=== PATIENT | female | born 1980 | race African-American/Black ===

== ENCOUNTER 2017-10-02 20:32 | Emergency (ER) | payer MEDICAID ==
[~2017-10-02] VITALS: Ht 152.4 cm; Wt 91.6 kg
[2017-10-02 20:38] VITALS: BP_SYST 184
[2017-10-02] MEDS ORDERED: NACL 0.9% 1,000 ML IV ONE (21:13)
[2017-10-02] MEDS ORDERED: DIPHENHYDRAMINE INJ 50 MG/ML VIAL IVP ONE (21:15)
[2017-10-02 21:47] LABS: BILIRUBIN,URINE NEGATIVE (NEGATIVE); CLARITY/URINE CLEAR (CLEAR); COLOR,URINE YELLOW (YELLOW); GLUCOSE,URINE 3+ (NEGATIVE); KETONES,URINE 1+ (NEGATIVE); LEUKOCYTE ESTERASE ,URINE NEGATIVE (NEGATIVE); NITRITE, URINE NEGATIVE (NEGATIVE); PROTEIN URINE 1+ (NEGATIVE); UROBILINOGEN,URINE 0.2 (0.2-1.0)
[2017-10-02 21:48] LABS: BLOOD, URINE TRACE (NEGATIVE)
[2017-10-02 21:56] LABS: BACTERIA,URINE FEW /HPF (None Seen); RBC,URINE 0-3 /HPF (0-3); WBC,URINE 0-3 /HPF (0-3)
[2017-10-02 21:57] LABS: MUCUS,URINE None Seen /LPF (None Seen)
[2017-10-02 22:01] LABS: TRIPLE PHOSPHATE CRYSTAL,UR 0-10 /HPF (None Seen)
[2017-10-02 22:11] LABS: EOSINOPHILS % (AUTO) 0.1 % (0.0-4.0); HEMATOCRIT 42.4 % (36-48); HEMOGLOBIN 13.5 g/dL (12.0-16.0); LYMPHOCYTES # (AUTO) 1.2 K/uL (1.0-5.5); LYMPHOCYTES % (AUTO) 6.4 % (20.5-51.5); MEAN CORPUSCULAR HEMOGLOBIN 25 pg (27-31); MEAN CORPUSCULAR HGB CONC 32 % (32-36); MEAN CORPUSCULAR VOLUME 77 fL (79.0-98.0); MONOCYTES # (AUTO) 0.9 K/uL (0.0-1.0); NEUTROPHILS # (AUTO) 16.1 K/uL (1.8-7.7); NEUTROPHILS % (AUTO) 88.5 % (40.0-70.0); PLATELET COUNT (AUTO) 241 K/uL (130-430); RED CELL DISTRIBUTION WIDTH 13.5 % (9.0-15.0); WHITE BLOOD COUNT (AUTO) 18.2 K/uL (4.8-10.8)
[2017-10-02 22:13] LABS: CALCIUM 9.7 mg/dL (8.4-11.0); CREATININE 0.76 mg/dL (0.55-1.30); POTASSIUM 3.6 mmol/L (3.5-5.1)
[2017-10-02 22:18] LABS: ALBUMIN 3.5 g/dL (3.4-4.8); TOTAL BILIRUBIN 0.6 mg/dL (0.0-1.0)
[2017-10-02] MEDS ORDERED: INSULIN REGULAR, HUMAN 10 UNITS/0.1 ML INJ SUBCUT ONE (23:30)
[2017-10-02] MEDS ORDERED: PENICILLIN G BENZATHINE 1.2 MMU/2 ML SYR IM ONE (23:30)
[2017-10-02] MEDS ORDERED: LISINOPRIL 10 MG TABLET (PRINIVIL) PO ONE (23:45)
[2017-10-03] MEDS ORDERED: ACETAMINOPHEN 325 MG TABLET PO ONE
[2017-10-03 00:55] VITALS: BP_SYST 201
== END 2017-10-03 00:55 | disposition home or self-care (01) ==
LOC: SED 20:32
DX: J02.0 Streptococcal pharyngitis (principal); B95.0 Streptococcus, group A, as the cause of diseases classified elsewhere; E11.9 Type 2 diabetes mellitus without complications; I10 Essential (primary) hypertension
CPT/HCPCS: 36415; 80053; 81000; 85025; 86403; 96361; 96372; 96374; 99285; J0561; J1200; J7030; J1815

== ENCOUNTER 2018-01-05 10:02 | Inpatient (IN) | payer MEDICAID ==
[~2018-01-05] VITALS: Ht 152.4 cm; Wt 88.0 kg
[2018-01-05 10:02] VITALS: BP_SYST 100
[2018-01-05] MEDS ORDERED: NACL 0.9% 1,000 ML IV ONE ×5 (10:47→16:30)
[2018-01-05 11:24] LABS: HEMOGLOBIN 11.9 g/dL (12.0-16.0); MEAN CORPUSCULAR HEMOGLOBIN 25 pg (27-31)
[2018-01-05 11:31] LABS: HCG,QUAL RESULT NEGATIVE (NEGATIVE)
[2018-01-05 11:33] LABS: ALBUMIN 2.5 g/dL (3.4-4.8); CALCIUM 9.2 mg/dL (8.4-11.0); CREATININE 2.32 mg/dL (0.55-1.30); HEMATOCRIT 36.4 % (36-48); MEAN CORPUSCULAR HGB CONC 33 % (32-36); MEAN CORPUSCULAR VOLUME 77 fL (79.0-98.0); PLATELET COUNT (AUTO) 173 K/uL (130-430); POTASSIUM 3.7 mmol/L (3.5-5.1); RED BLOOD CELL COUNT(AUTO) 4.74 MIL/uL (4.2-6.2); RED CELL DISTRIBUTION WIDTH 14.3 % (9.0-15.0); WHITE BLOOD COUNT (AUTO) 18.9 K/uL (4.8-10.8)
[2018-01-05 11:41] LABS: BILIRUBIN,URINE NEGATIVE (NEGATIVE); BLOOD, URINE 2+ (NEGATIVE); CLARITY/URINE CLOUDY (CLEAR); COLOR,URINE YELLOW (YELLOW); GLUCOSE,URINE 3+ (NEGATIVE); KETONES,URINE NEGATIVE (NEGATIVE); LEUKOCYTE ESTERASE ,URINE 2+ (NEGATIVE); NITRITE, URINE NEGATIVE (NEGATIVE); PH,URINE 5.5 (5.0-8.0); PROTEIN URINE 2+ (NEGATIVE); UROBILINOGEN,URINE 0.2 (0.2-1.0)
[2018-01-05 11:57] LABS: RBC,URINE 20-50 /HPF (0-3)
[2018-01-05 11:58] LABS: BACTERIA,URINE MODERATE /HPF (None Seen); WBC,URINE >100 /HPF (0-3); YEAST,URINE None Seen /HPF (None Seen)
[2018-01-05] MEDS ORDERED: ONDANSETRON HCL 4 MG/2 ML VIAL IVP ONE (12:00)
[2018-01-05] MEDS ORDERED: cefTRIAXone 1 GM IVPB PREMIX 50 ML IV ONE (12:00)
[2018-01-05] MEDS ORDERED: MORPHINE 4 MG/ML INJ. SYRINGE IVP ONE (12:00)
[2018-01-05] MEDS ORDERED: INSULIN REGULAR, HUMAN 10 UNITS/0.1 ML INJ IVP ONE (12:00)
[2018-01-05 12:29] LABS: ATYPICAL LYMPHOCYTES % 0 % (0-0); BAND % (MANUAL) 11 % (0-6); BASOPHILS % (MANUAL) 0 % (0-2); EOSINOPHILS % (MANUAL) 0 % (0-7); LYMPHOCYTES % (MANUAL) 1 % (20-46); MONOCYTES % (MANUAL) 4 % (0-11)
[2018-01-05] MEDS ORDERED: GLUXR500 PO (16:03)
[2018-01-05] MEDS ORDERED: LOSA100T11 PO (16:03)
[2018-01-05 16:22] VITALS: BP_SYST 103
[2018-01-05] MEDS ORDERED: MORPHINE 2 MG/ML INJ. SYRINGE IVP PRN (16:30)
[2018-01-05] MEDS ORDERED: DEXTROSE 50% JECT 50 ML DISP.SYRIN IVP PRN (16:30)
[2018-01-05] MEDS ORDERED: PIPERACILLIN/TAZO 3.375/DEX-IS 50 ML IV SCH (16:30)
[2018-01-05] MEDS ORDERED: MORPHINE 4 MG/ML INJ. SYRINGE IVP PRN (16:30)
[2018-01-05] MEDS: NACL 0.9% 1,000 ML IV SCH (17:47)
[2018-01-05] MEDS: INSULIN REGULAR, HUMAN 100 UNITS/ML, 10 ML VIAL (novoLIN R) SUBCUT PRN (17:48)
[2018-01-05] MEDS: PIPERACILLIN/TAZO 3.375/DEX-IS 50 ML IV SCH ×2 (17:57→23:26)
[2018-01-05] MEDS: ONDANSETRON HCL 4 MG/2 ML VIAL IVP PRN (18:22)
[2018-01-05 20:00] VITALS: BP_SYST 110
[2018-01-05] MEDS: HYDROmorphone 2 MG/ML VIAL IVP PRN (20:23)
[2018-01-05] MEDS ORDERED: METOCLOPRAMIDE HCL 10 MG/2 ML VIAL IVP PRN (21:15)
[2018-01-05 22:17] LABS: CALCIUM 8.4 mg/dL (8.4-11.0); CREATININE 2.55 mg/dL (0.55-1.30); POTASSIUM 3.7 mmol/L (3.5-5.1)
[2018-01-06] VITALS: BP_SYST 105
[2018-01-06] MEDS: INSULIN REGULAR, HUMAN 100 UNITS/ML, 10 ML VIAL (novoLIN R) SUBCUT PRN ×4 (00:05→17:37)
[2018-01-06] MEDS: HYDROmorphone 2 MG/ML VIAL IVP PRN ×4 (02:19→20:14)
[2018-01-06] MEDS: NACL 0.9% 1,000 ML IV SCH ×2 (05:28→21:12)
[2018-01-06] MEDS: PIPERACILLIN/TAZO 3.375/DEX-IS 50 ML IV SCH (05:28)
[2018-01-06] MEDS ORDERED: LEVOFLOXACIN 500 MG/D5W 100 ML IV ONE (07:00)
[2018-01-06 08:14] VITALS: BP_SYST 138
[2018-01-06 08:39] LABS: BASOPHILS % (AUTO) 0.1 % (0.0-2.0)
[2018-01-06 08:44] LABS: EOSINOPHILS # (AUTO) 0.5 K/uL (0.0-0.4); EOSINOPHILS % (AUTO) 3.1 % (0.0-4.0); HEMATOCRIT 33.9 % (36-48); HEMOGLOBIN 10.7 g/dL (12.0-16.0); LYMPHOCYTES # (AUTO) 0.4 K/uL (1.0-5.5); LYMPHOCYTES % (AUTO) 2.7 % (20.5-51.5); MEAN CORPUSCULAR HEMOGLOBIN 25 pg (27-31); MEAN CORPUSCULAR HGB CONC 32 % (32-36); MEAN CORPUSCULAR VOLUME 78 fL (79.0-98.0); MONOCYTES # (AUTO) 0.9 K/uL (0.0-1.0); MONOCYTES % (AUTO) 5.5 % (1.7-9.3); NEUTROPHILS # (AUTO) 14.6 K/uL (1.8-7.7); NEUTROPHILS % (AUTO) 88.6 % (40.0-70.0); PLATELET COUNT (AUTO) 155 K/uL (130-430); RED BLOOD CELL COUNT(AUTO) 4.33 MIL/uL (4.2-6.2); RED CELL DISTRIBUTION WIDTH 14.1 % (9.0-15.0); WHITE BLOOD COUNT (AUTO) 16.4 K/uL (4.8-10.8)
[2018-01-06] MEDS ORDERED: HYDROmorphone 2 MG/ML VIAL IVP ONE (09:15)
[2018-01-06 09:23] LABS: CREATININE 2.4 mg/dL (0.55-1.30); POTASSIUM 3.1 mmol/L (3.5-5.1)
[2018-01-06 09:28] LABS: ALBUMIN 2.3 g/dL (3.4-4.8); TOTAL BILIRUBIN 0.8 mg/dL (0.0-1.0)
[2018-01-06] MEDS ORDERED: PIPERACILLIN/TAZO 2.25G/DEX-IS 50 ML IV SCH (12:00)
[2018-01-06 12:47] VITALS: BP_SYST 110
[2018-01-06] MEDS: ONDANSETRON HCL 4 MG/2 ML VIAL IVP PRN ×2 (12:54→20:22)
[2018-01-06] MEDS ORDERED: POTASSIUM CHLORIDE 20 MEQ TAB.PRT.SR PO ONE (14:45)
[2018-01-06] MEDS ORDERED: GENTAMICIN 120 mg/100 mL NS 100 ML IV ONE (15:00)
[2018-01-06 16:52] VITALS: BP_SYST 102
[2018-01-06] MEDS ORDERED: HYDROCORTISONE ACETATE 1 SUPP (ANUSOL HC) RC ONE (17:15)
[2018-01-06 18:19] LABS: BARBITURATE, URINE NEGATIVE (NEG <=200); BENZODIAZEPINE, URINE NEGATIVE (NEG <=150); CANNABINOID, URINE NEGATIVE (NEG <=50); COCAINE, URINE NEGATIVE (NEG <=150); METHAMPHETAMINES SCREEN,URINE NEGATIVE (NEG <=500); OPIATE, URINE POSITIVE (NEG <=100); PHENCYCLIDINE SCREEN,URINE NEGATIVE (NEG <=25); UR TRICYCLIC ANTIDEPRESSANTS NEGATIVE (NEG <=300); URINE AMPHETAMINE NEGATIVE (NEG <=500); URINE METHADONE NEGATIVE (NEG <=200); URINE OXYCODONE SCREEN NEGATIVE (NEG <=100); URINE PROPOXYPHENE SCREEN NEGATIVE (NEG <=300)
[2018-01-06 20:00] VITALS: BP_SYST 108
[2018-01-06] MEDS: HYDROCORTISONE ACETATE 1 SUPP (ANUSOL HC) RC SCH (20:12)
[2018-01-07] VITALS (7 sets, daily range): BP systolic 124–180
[2018-01-07] MEDS: INSULIN REGULAR, HUMAN 100 UNITS/ML, 10 ML VIAL (novoLIN R) SUBCUT PRN ×5 (01:35→23:44)
[2018-01-07] MEDS: HYDROmorphone 2 MG/ML VIAL IVP PRN ×6 (01:41→21:00)
[2018-01-07] MEDS: NACL 0.9% 1,000 ML IV SCH ×3 (04:58→19:00)
[2018-01-07 06:20] LABS: BASOPHILS % (AUTO) 0.1 % (0.0-2.0); EOSINOPHILS # (AUTO) 0.2 K/uL (0.0-0.4); EOSINOPHILS % (AUTO) 1.6 % (0.0-4.0); HEMATOCRIT 29.8 % (36-48); HEMOGLOBIN 9.5 g/dL (12.0-16.0); LYMPHOCYTES # (AUTO) 0.3 K/uL (1.0-5.5); LYMPHOCYTES % (AUTO) 2.5 % (20.5-51.5); MEAN CORPUSCULAR HEMOGLOBIN 25 pg (27-31); MEAN CORPUSCULAR HGB CONC 32 % (32-36); MEAN CORPUSCULAR VOLUME 77 fL (79.0-98.0); MONOCYTES # (AUTO) 0.7 K/uL (0.0-1.0); MONOCYTES % (AUTO) 5.1 % (1.7-9.3); NEUTROPHILS # (AUTO) 11.6 K/uL (1.8-7.7); NEUTROPHILS % (AUTO) 90.7 % (40.0-70.0); PLATELET COUNT (AUTO) 162 K/uL (130-430); RED BLOOD CELL COUNT(AUTO) 3.86 MIL/uL (4.2-6.2); RED CELL DISTRIBUTION WIDTH 14.2 % (9.0-15.0); WHITE BLOOD COUNT (AUTO) 12.8 K/uL (4.8-10.8)
[2018-01-07 06:58] LABS: ALBUMIN 1.8 g/dL (3.4-4.8); CALCIUM 8.5 mg/dL (8.4-11.0); CREATININE 2.13 mg/dL (0.55-1.30); POTASSIUM 3.2 mmol/L (3.5-5.1); TOTAL BILIRUBIN 0.5 mg/dL (0.0-1.0)
[2018-01-07] MEDS: LEVOFLOXACIN 250 MG/D5W 50 ML IV SCH (09:31)
[2018-01-07] MEDS: HYDROCORTISONE ACETATE 1 SUPP (ANUSOL HC) RC SCH ×2 (09:40→20:59)
[2018-01-07] MEDS ORDERED: LABETALOL 100 MG/ 20ML VIAL IVP PRN ×2 (20:15→20:45)
[2018-01-07] MEDS: amLODIPine BESYLATE 5 MG TABLET PO SCH (20:59)
[2018-01-08 00:38] VITALS: BP_SYST 155
[2018-01-08] MEDS: HYDROmorphone 2 MG/ML VIAL IVP PRN ×6 (01:02→22:46)
[2018-01-08] MEDS: NACL 0.9% 1,000 ML IV SCH ×2 (04:30→14:34)
[2018-01-08] MEDS: cloNIDine HCL 0.1 MG TABLET PO PRN ×2 (04:56→11:02)
[2018-01-08 05:00] VITALS: BP_SYST 158
[2018-01-08] MEDS: INSULIN REGULAR, HUMAN 100 UNITS/ML, 10 ML VIAL (novoLIN R) SUBCUT PRN ×4 (05:04→23:10)
[2018-01-08 06:09] LABS: BASOPHILS % (AUTO) 0.3 % (0.0-2.0); EOSINOPHILS # (AUTO) 0.1 K/uL (0.0-0.4); EOSINOPHILS % (AUTO) 0.5 % (0.0-4.0); HEMOGLOBIN 10.3 g/dL (12.0-16.0); LYMPHOCYTES # (AUTO) 0.8 K/uL (1.0-5.5); LYMPHOCYTES % (AUTO) 7.4 % (20.5-51.5); MEAN CORPUSCULAR HEMOGLOBIN 25 pg (27-31); MEAN CORPUSCULAR HGB CONC 33 % (32-36); MEAN CORPUSCULAR VOLUME 76 fL (79.0-98.0); MONOCYTES # (AUTO) 1.1 K/uL (0.0-1.0); MONOCYTES % (AUTO) 10.4 % (1.7-9.3); NEUTROPHILS # (AUTO) 8.9 K/uL (1.8-7.7); PLATELET COUNT (AUTO) 184 K/uL (130-430); RED BLOOD CELL COUNT(AUTO) 4.06 MIL/uL (4.2-6.2); RED CELL DISTRIBUTION WIDTH 14.3 % (9.0-15.0); WHITE BLOOD COUNT (AUTO) 10.9 K/uL (4.8-10.8)
[2018-01-08 06:37] LABS: ALBUMIN 1.8 g/dL (3.4-4.8); CALCIUM 8.9 mg/dL (8.4-11.0); CREATININE 1.61 mg/dL (0.55-1.30); TOTAL BILIRUBIN 0.7 mg/dL (0.0-1.0)
[2018-01-08 08:00] VITALS: BP_SYST 167
[2018-01-08] MEDS: LEVOFLOXACIN 250 MG/D5W 50 ML IV SCH (08:03)
[2018-01-08] MEDS: amLODIPine BESYLATE 5 MG TABLET PO SCH ×2 (08:03→20:18)
[2018-01-08] MEDS: HYDROCORTISONE ACETATE 1 SUPP (ANUSOL HC) RC SCH ×2 (08:03→20:17)
[2018-01-08] MEDS ORDERED: NA PHOS,M-B/NA PHOS,DI-BA 118 ML (FLEET ENEMA) RC ONE (08:45)
[2018-01-08] MEDS ORDERED: IBUPROFEN 400 MG TABLET PO ONE (08:45)
[2018-01-08 11:26] LABS: NEUTROPHILS % (AUTO) 81.4 % (40.0-70.0)
[2018-01-08 13:27] VITALS: BP_SYST 143
[2018-01-08] MEDS ORDERED: DOCUSATE SODIUM 250 MG CAPSULE PO ONE (14:45)
[2018-01-08] MEDS ORDERED: POTASSIUM CHLORIDE 20 MEQ TAB.PRT.SR PO ONE (14:45)
[2018-01-08] MEDS: ONDANSETRON HCL 4 MG/2 ML VIAL IVP PRN (15:59)
[2018-01-08 16:16] VITALS: BP_SYST 147
[2018-01-08] MEDS ORDERED: DIPHENHYDRAMINE INJ 50 MG/ML VIAL IVP PRN (18:30)
[2018-01-08 20:00] VITALS: BP_SYST 151
[2018-01-08] MEDS: DOCUSATE SODIUM 250 MG CAPSULE PO SCH (20:18)
[2018-01-08] MEDS: POTASSIUM CHLORIDE 20 MEQ TAB.PRT.SR PO SCH (20:19)
[2018-01-09 00:30] VITALS: BP_SYST 150
[2018-01-09] MEDS: NACL 0.9% 1,000 ML IV SCH ×3 (01:06→22:58)
[2018-01-09] MEDS: HYDROmorphone 2 MG/ML VIAL IVP PRN ×6 (02:42→22:57)
[2018-01-09] MEDS: INSULIN REGULAR, HUMAN 100 UNITS/ML, 10 ML VIAL (novoLIN R) SUBCUT PRN ×4 (06:13→23:31)
[2018-01-09 06:54] LABS: BASOPHILS % (AUTO) 0.1 % (0.0-2.0); EOSINOPHILS # (AUTO) 0.1 K/uL (0.0-0.4); EOSINOPHILS % (AUTO) 0.6 % (0.0-4.0); HEMATOCRIT 32.8 % (36-48); HEMOGLOBIN 10.7 g/dL (12.0-16.0); LYMPHOCYTES # (AUTO) 0.7 K/uL (1.0-5.5); LYMPHOCYTES % (AUTO) 6.2 % (20.5-51.5); MEAN CORPUSCULAR HEMOGLOBIN 25 pg (27-31); MEAN CORPUSCULAR HGB CONC 33 % (32-36); MEAN CORPUSCULAR VOLUME 77 fL (79.0-98.0); MONOCYTES # (AUTO) 1.4 K/uL (0.0-1.0); MONOCYTES % (AUTO) 12.2 % (1.7-9.3); NEUTROPHILS % (AUTO) 80.9 % (40.0-70.0); PLATELET COUNT (AUTO) 195 K/uL (130-430); RED BLOOD CELL COUNT(AUTO) 4.28 MIL/uL (4.2-6.2); WHITE BLOOD COUNT (AUTO) 11.2 K/uL (4.8-10.8)
[2018-01-09 07:02] LABS: ALBUMIN 1.7 g/dL (3.4-4.8); CALCIUM 8.7 mg/dL (8.4-11.0); CREATININE 1.2 mg/dL (0.55-1.30); TOTAL BILIRUBIN 0.7 mg/dL (0.0-1.0)
[2018-01-09 07:07] LABS: POTASSIUM 2.5 mmol/L (3.5-5.1)
[2018-01-09 08:00] VITALS: BP_SYST 161
[2018-01-09] MEDS ORDERED: POTASSIUM CHLORIDE 20 MEQ TAB.PRT.SR PO ONE ×2 (08:30→14:15)
[2018-01-09] MEDS: HYDROCORTISONE ACETATE 1 SUPP (ANUSOL HC) RC SCH ×2 (08:48→21:54)
[2018-01-09] MEDS: POTASSIUM CHLORIDE 20 MEQ TAB.PRT.SR PO SCH ×2 (08:48→21:55)
[2018-01-09] MEDS: DOCUSATE SODIUM 250 MG CAPSULE PO SCH ×2 (08:49→21:55)
[2018-01-09] MEDS: amLODIPine BESYLATE 5 MG TABLET PO SCH ×2 (08:49→21:56)
[2018-01-09] MEDS: LEVOFLOXACIN 250 MG/D5W 50 ML IV SCH (08:50)
[2018-01-09 12:00] VITALS: BP_SYST 152
[2018-01-09] MEDS ORDERED: MAGNESIUM SULFATE 50 ML IV ONE (12:15)
[2018-01-09 16:00] VITALS: BP_SYST 131
[2018-01-09 19:30] VITALS: BP_SYST 140
[2018-01-10] VITALS (7 sets, daily range): BP systolic 98–175
[2018-01-10] MEDS: cloNIDine HCL 0.1 MG TABLET PO PRN (00:38)
[2018-01-10] MEDS: HYDROmorphone 2 MG/ML VIAL IVP PRN ×2 (03:58→08:11)
[2018-01-10] MEDS: INSULIN REGULAR, HUMAN 100 UNITS/ML, 10 ML VIAL (novoLIN R) SUBCUT PRN ×3 (06:31→17:26)
[2018-01-10 06:35] LABS: BASOPHILS % (AUTO) 0.1 % (0.0-2.0); EOSINOPHILS # (AUTO) 0.1 K/uL (0.0-0.4); EOSINOPHILS % (AUTO) 0.7 % (0.0-4.0); HEMATOCRIT 31.7 % (36-48); HEMOGLOBIN 10.4 g/dL (12.0-16.0); LYMPHOCYTES # (AUTO) 0.9 K/uL (1.0-5.5); LYMPHOCYTES % (AUTO) 7.7 % (20.5-51.5); MEAN CORPUSCULAR HEMOGLOBIN 25 pg (27-31); MEAN CORPUSCULAR HGB CONC 33 % (32-36); MEAN CORPUSCULAR VOLUME 77 fL (79.0-98.0); MONOCYTES # (AUTO) 1.3 K/uL (0.0-1.0); MONOCYTES % (AUTO) 10.9 % (1.7-9.3); NEUTROPHILS # (AUTO) 9.8 K/uL (1.8-7.7); NEUTROPHILS % (AUTO) 80.6 % (40.0-70.0); PLATELET COUNT (AUTO) 207 K/uL (130-430); RED BLOOD CELL COUNT(AUTO) 4.14 MIL/uL (4.2-6.2); WHITE BLOOD COUNT (AUTO) 12.1 K/uL (4.8-10.8)
[2018-01-10 06:56] LABS: POTASSIUM 3.5 mmol/L (3.5-5.1)
[2018-01-10 06:57] LABS: ALBUMIN 1.8 g/dL (3.4-4.8); CREATININE 1.19 mg/dL (0.55-1.30); TOTAL BILIRUBIN 0.6 mg/dL (0.0-1.0)
[2018-01-10] MEDS: POTASSIUM CHLORIDE 20 MEQ TAB.PRT.SR PO SCH ×2 (08:10→21:17)
[2018-01-10] MEDS: DOCUSATE SODIUM 250 MG CAPSULE PO SCH ×2 (08:10→21:16)
[2018-01-10] MEDS: amLODIPine BESYLATE 5 MG TABLET PO SCH ×2 (08:12→21:20)
[2018-01-10] MEDS: LEVOFLOXACIN 250 MG/D5W 50 ML IV SCH (08:12)
[2018-01-10] MEDS: HYDROCORTISONE ACETATE 1 SUPP (ANUSOL HC) RC SCH ×3 (09:00→21:20)
[2018-01-10] MEDS: ONDANSETRON HCL 4 MG/2 ML VIAL IVP PRN (10:19)
[2018-01-10] MEDS: NACL 0.9% 1,000 ML IV SCH (10:31)
[2018-01-10] MEDS: HYDROmorphone 1 MG INJ. 1 MG/ML AMPUL IVP PRN ×3 (12:23→21:16)
[2018-01-11] VITALS: BP_SYST 152
[2018-01-11] MEDS: INSULIN REGULAR, HUMAN 100 UNITS/ML, 10 ML VIAL (novoLIN R) SUBCUT PRN ×3 (00:55→11:29)
[2018-01-11] MEDS: HYDROmorphone 1 MG INJ. 1 MG/ML AMPUL IVP PRN ×2 (01:14→04:13)
[2018-01-11] MEDS: NACL 0.9% 1,000 ML IV SCH ×2 (04:20→12:26)
[2018-01-11 08:00] VITALS: BP_SYST 123
[2018-01-11] MEDS ORDERED: HYDROcodone/ACETAMIN 5-325 MG TAB (NORCO/ VICODIN) PO PRN (08:45)
[2018-01-11] MEDS ORDERED: ACETAMINOPHEN 325 MG TABLET PO PRN (08:45)
[2018-01-11] MEDS: amLODIPine BESYLATE 5 MG TABLET PO SCH (08:58)
[2018-01-11] MEDS: POTASSIUM CHLORIDE 20 MEQ TAB.PRT.SR PO SCH (08:58)
[2018-01-11] MEDS: HYDROCORTISONE ACETATE 1 SUPP (ANUSOL HC) RC SCH (08:59)
[2018-01-11] MEDS: LEVOFLOXACIN 250 MG/D5W 50 ML IV SCH (08:59)
[2018-01-11] MEDS: DOCUSATE SODIUM 250 MG CAPSULE PO SCH (09:02)
[2018-01-11 09:18] LABS: PLATELET COUNT (AUTO) 280 K/uL (130-430); RED CELL DISTRIBUTION WIDTH 14.1 % (9.0-15.0)
[2018-01-11 09:25] LABS: ALBUMIN 2.2 g/dL (3.4-4.8); CALCIUM 9.2 mg/dL (8.4-11.0); CREATININE 1.05 mg/dL (0.55-1.30); POTASSIUM 3.3 mmol/L (3.5-5.1); TOTAL BILIRUBIN 0.5 mg/dL (0.0-1.0)
[2018-01-11 09:30] LABS: HEMATOCRIT 35.1 % (36-48); HEMOGLOBIN 11.3 g/dL (12.0-16.0); MEAN CORPUSCULAR HEMOGLOBIN 24 pg (27-31); MEAN CORPUSCULAR HGB CONC 32 % (32-36); MEAN CORPUSCULAR VOLUME 76 fL (79.0-98.0); RED BLOOD CELL COUNT(AUTO) 4.61 MIL/uL (4.2-6.2); WHITE BLOOD COUNT (AUTO) 12.9 K/uL (4.8-10.8)
[2018-01-11 10:44] LABS: BAND % (MANUAL) 6 % (0-6); LYMPHOCYTES % (MANUAL) 9 % (20-46); MONOCYTES % (MANUAL) 7 % (0-11)
[2018-01-11 10:45] LABS: BASOPHILS % (MANUAL) 0 % (0-2); EOSINOPHILS % (MANUAL) 2 % (0-7)
[2018-01-11] MEDS: ONDANSETRON HCL 4 MG/2 ML VIAL IVP PRN (11:26)
[2018-01-11 12:37] VITALS: BP_SYST 153
[2018-01-11] MEDS ORDERED: POTASSIUM CHLORIDE 20 MEQ TAB.PRT.SR PO ONE (12:45)
[2018-01-11] MEDS ORDERED: metroNIDAZOLE 250 mg/NS 50 ML IV SCH (14:00)
[2018-01-11 16:17] VITALS: BP_SYST 141
[2018-01-11] MEDS ORDERED: CIPR-211 PO (16:35)
[2018-01-11] MEDS ORDERED: METR500T PO (16:36)
[2018-01-11 16:46] VITALS: BP_SYST 141
[2018-01-11] MEDS ORDERED: HYDR-1189 PO (16:46)
== END 2018-01-11 17:15 | disposition home or self-care (01) | DRG 720 ==
LOC: SED 10:02 → SMU 15:48 → STU 01-07 21:00
PROVIDERS: ADMIT Internal Medicine Hospice and Palliative Medicine; ATTEND Internal Medicine Hospice and Palliative Medicine
PROC: 0UPD7HZ Removal of Contraceptive Device from Uterus and Cervix, Via Natural or Artificial Opening (ICD-10-PCS; principal; 2018-01-11)
DX: A41.51 Sepsis due to Escherichia coli [E. coli] (principal); N17.0 Acute kidney failure with tubular necrosis; E87.0 Hyperosmolality and hypernatremia; N10 Acute pyelonephritis; E11.9 Type 2 diabetes mellitus without complications; B96.20 Unspecified Escherichia coli [E. coli] as the cause of diseases classified elsewhere; E44.0 Moderate protein-calorie malnutrition; N39.0 Urinary tract infection, site not specified; I10 Essential (primary) hypertension; B96.89 Other specified bacterial agents as the cause of diseases classified elsewhere; E88.09 Other disorders of plasma-protein metabolism, not elsewhere classified; K82.4 Cholesterolosis of gallbladder; E66.01 Morbid (severe) obesity due to excess calories; E87.6 Hypokalemia; E11.21 Type 2 diabetes mellitus with diabetic nephropathy; Z68.37 Body mass index [BMI] 37.0-37.9, adult; Z30.430 Encounter for insertion of intrauterine contraceptive device; Z87.442 Personal history of urinary calculi; Z91.19 Patient's noncompliance with other medical treatment and regimen
CPT/HCPCS: 36415; 76700-TC; 76830-TC; 76857; 78226; 80048; 80053; 80307; 81000-TC; 82962; 83605; 83690-TC; 83735-TC; 84703; 85007; 85025; 85027; 87040-TC; 87086; 87186-TC; 96361; 96365; 96375; 99291; A9537; C1751; J0696; J1170; J1200; J1580; J1815; J1956; J2270; J2405; J2543; J2765; J3475; J3490; J7030

== ENCOUNTER 2018-09-20 05:58 | Emergency (ER) | payer MEDICAID ==
[~2018-09-20] VITALS: Ht 152.4 cm; Wt 89.8 kg
[~2018-09-20 05:58] MED LIST: CIPR-211 PO; GLUXR500 PO; HYDR-1189 PO; LOSA100T3 PO; METR500T PO
[2018-09-20 06:15] VITALS: BP_SYST 151
[2018-09-20 06:40] VITALS: BP_SYST 151
== END 2018-09-20 06:40 | disposition home or self-care (01) ==
LOC: SED 05:58
DX: J20.9 Acute bronchitis, unspecified (principal); E11.9 Type 2 diabetes mellitus without complications; I10 Essential (primary) hypertension; Z79.899 Other long term (current) drug therapy
CPT/HCPCS: 99283

== ENCOUNTER 2019-01-18 13:57 | Emergency (ER) | payer MEDICAID ==
[~2019-01-18] VITALS: Ht 152.4 cm; Wt 86.2 kg
[2019-01-18 14:04] VITALS: BP_SYST 200
[2019-01-18 15:11] LABS: CALCIUM 9.5 mg/dL (8.4-11.0); CREATININE 1.02 mg/dL (0.55-1.30); POTASSIUM 3.7 mmol/L (3.5-5.1)
[2019-01-18 15:14] LABS: ALBUMIN 3.1 g/dL (3.4-4.8); TOTAL BILIRUBIN 0.5 mg/dL (0.0-1.0)
[2019-01-18 15:19] LABS: BASOPHILS # (AUTO) 0.1 K/uL (0.0-0.2); BASOPHILS % (AUTO) 0.7 % (0.0-2.0); EOSINOPHILS # (AUTO) 0.2 K/uL (0.0-0.4); EOSINOPHILS % (AUTO) 2.5 % (0.0-4.0); HEMATOCRIT 41.2 % (36-48); LYMPHOCYTES # (AUTO) 1.6 K/uL (1.0-5.5); LYMPHOCYTES % (AUTO) 21.4 % (20.5-51.5); MEAN CORPUSCULAR HEMOGLOBIN 24 pg (27-31); MEAN CORPUSCULAR HGB CONC 32 % (32-36); MEAN CORPUSCULAR VOLUME 77 fL (79.0-98.0); MONOCYTES # (AUTO) 0.4 K/uL (0.0-1.0); MONOCYTES % (AUTO) 5.3 % (1.7-9.3); NEUTROPHILS # (AUTO) 5.2 K/uL (1.8-7.7); NEUTROPHILS % (AUTO) 70.1 % (40.0-70.0); PLATELET COUNT (AUTO) 208 K/uL (130-430); RED BLOOD CELL COUNT(AUTO) 5.34 MIL/uL (4.2-6.2); RED CELL DISTRIBUTION WIDTH 14.7 % (9.0-15.0); WHITE BLOOD COUNT (AUTO) 7.4 K/uL (4.8-10.8)
[2019-01-18] MEDS ORDERED: HYDROcodone/ACETAMIN 5-325 MG TAB (NORCO/ VICODIN) PO ONE (15:45)
[2019-01-18 16:45] VITALS: BP_SYST 175
== END 2019-01-18 16:45 | disposition home or self-care (01) ==
LOC: SED 13:57
DX: I16.0 Hypertensive urgency (principal); I10 Essential (primary) hypertension; R51 Headache; E11.9 Type 2 diabetes mellitus without complications; Z79.899 Other long term (current) drug therapy
CPT/HCPCS: 36415; 70450-TC; 80053; 81025; 85025; 93005; 99284

== ENCOUNTER 2019-01-19 10:55 | Emergency (ER) | payer MEDICAID ==
[~2019-01-19] VITALS: Ht 152.4 cm; Wt 88.5 kg
[2019-01-19 11:07] VITALS: BP_SYST 174
--- NOTE | 2019-01-19 11:24 | NUR ---
Patient to ER bed 3 to gown for evaluation. Side rails up. Report given to Kira LÓPEZ.
--- NOTE | 2019-01-19 11:25 | NUR ---
Pt AAOx4 ambulated into ED c/o 04/06 headache, nausea, vomiting, and elevated BP systolic >200 x "past few days." Pt has been seen in ED x 3 days ago with similar symptoms. Pt was sent home with pain and anti-nausea medication with no relief. Pt denies taking BP meds due to vomiting. No other injuries/complaints per pt/noted. Will continue to monitor.
--- NOTE | 2019-01-19 11:30 | NUR ---
ER Dr. Camp at bedside examining patient.
[2019-01-19] MEDS ORDERED: ONDANSETRON 4 MG ODT TAB PO ONE (11:45)
[2019-01-19] MEDS ORDERED: HYDROcodone/ACETAMIN 10-325 MG TAB PO ONE (11:45)
[2019-01-19] MEDS ORDERED: cloNIDine HCL 0.1 MG TABLET PO ONE (11:45)
[2019-01-19 12:06] LABS: CALCIUM 9.3 mg/dL (8.4-11.0); CREATININE 0.94 mg/dL (0.55-1.30); POTASSIUM 3.6 mmol/L (3.5-5.1)
[2019-01-19 12:09] LABS: BASOPHILS % (AUTO) 0.4 % (0.0-2.0); EOSINOPHILS # (AUTO) 0.1 K/uL (0.0-0.4); EOSINOPHILS % (AUTO) 1.1 % (0.0-4.0); HEMATOCRIT 43.8 % (36-48); HEMOGLOBIN 14.2 g/dL (12.0-16.0); LYMPHOCYTES # (AUTO) 1.1 K/uL (1.0-5.5); LYMPHOCYTES % (AUTO) 15.6 % (20.5-51.5); MEAN CORPUSCULAR HEMOGLOBIN 25 pg (27-31); MEAN CORPUSCULAR HGB CONC 32 % (32-36); MEAN CORPUSCULAR VOLUME 77 fL (79.0-98.0); MONOCYTES # (AUTO) 0.2 K/uL (0.0-1.0); MONOCYTES % (AUTO) 3.4 % (1.7-9.3); NEUTROPHILS # (AUTO) 5.4 K/uL (1.8-7.7); NEUTROPHILS % (AUTO) 79.5 % (40.0-70.0); PLATELET COUNT (AUTO) 216 K/uL (130-430); RED BLOOD CELL COUNT(AUTO) 5.71 MIL/uL (4.2-6.2); RED CELL DISTRIBUTION WIDTH 14.5 % (9.0-15.0); WHITE BLOOD COUNT (AUTO) 6.8 K/uL (4.8-10.8)
[2019-01-19 12:10] LABS: ALBUMIN 3.3 g/dL (3.4-4.8); INR 0.9 (0.8-1.2); PROTHROMBIN TIME 8.9 SECS (9.5-12.5); TOTAL BILIRUBIN 0.4 mg/dL (0.0-1.0)
[2019-01-19 13:03] LABS: CANNABINOID, URINE POSITIVE (NEG <=50)
[2019-01-19 13:04] LABS: BARBITURATE, URINE NEGATIVE (NEG <=200); BENZODIAZEPINE, URINE NEGATIVE (NEG <=150); COCAINE, URINE NEGATIVE (NEG <=150); METHAMPHETAMINES SCREEN,URINE NEGATIVE (NEG <=500); OPIATE, URINE POSITIVE (NEG <=100); PHENCYCLIDINE SCREEN,URINE NEGATIVE (NEG <=25); UR TRICYCLIC ANTIDEPRESSANTS NEGATIVE (NEG <=300); URINE AMPHETAMINE NEGATIVE (NEG <=500); URINE METHADONE NEGATIVE (NEG <=200); URINE OXYCODONE SCREEN NEGATIVE (NEG <=100); URINE PROPOXYPHENE SCREEN NEGATIVE (NEG <=300)
[2019-01-19] MEDS ORDERED: INSULIN REGULAR, HUMAN 10 UNITS/0.1 ML INJ SUBCUT ONE (14:00)
--- NOTE | 2019-01-19 14:00 | NUR ---
[facility]
[2019-01-19 15:15] VITALS: BP_SYST 128
--- NOTE | 2019-01-19 15:15 | NUR ---
Patient given written and verbal discharge instructions and verbalizes understanding. ER MD discussed with patient the results and treatment provided. Patient in stable condition. ID arm band removed. IV catheter removed intact and dressing applied, no active bleeding. Rx of Lomotil given. Patient educated on pain management and to follow up with PMD. Pain Scale0/10 . Opportunity for questions provided and answered. Medication side effect fact sheet provided.
[2019-01-20] MEDS ORDERED: METO100T14 PO (19:38)
[2019-01-20] MEDS ORDERED: ONDA4TAB5 PO (19:38)
[2019-01-20] MEDS ORDERED: TRAM-350 PO (19:38)
== END 2019-01-19 15:15 | disposition home or self-care (01) ==
LOC: SED 10:55
DX: R51 Headache (principal); E11.9 Type 2 diabetes mellitus without complications; I10 Essential (primary) hypertension; Z79.899 Other long term (current) drug therapy
CPT/HCPCS: 36415; 71045; 80053; 80307; 81025; 82962; 83605; 84484; 84703; 85025; 85610; 85730; 93005; 96372; 99284; J1815; Q0162

== ENCOUNTER 2019-01-20 18:52 | Inpatient (IN) | payer MEDICAID ==
[~2019-01-20] VITALS: Ht 152.4 cm; Wt 90.3 kg
[2019-01-20 19:08] VITALS: BP_SYST 236
[2019-01-20] MEDS ORDERED: METO100T14 PO (19:38)
[2019-01-20] MEDS ORDERED: ONDA4TAB5 PO (19:38)
[2019-01-20] MEDS ORDERED: TRAM-350 PO (19:38)
[2019-01-20] MEDS ORDERED: MORPHINE 4 MG/ML INJ. SYRINGE IVP ONE (19:45)
[2019-01-20] MEDS ORDERED: hydrALAZINE HCL 20 MG/ML VIAL IVP ONE ×2 (19:45→22:15)
[2019-01-20 20:23] LABS: EOSINOPHILS # (AUTO) 0.1 K/uL (0.0-0.4); EOSINOPHILS % (AUTO) 1.6 % (0.0-4.0); HEMOGLOBIN 13.2 g/dL (12.0-16.0); MONOCYTES # (AUTO) 0.3 K/uL (0.0-1.0); RED CELL DISTRIBUTION WIDTH 14.6 % (9.0-15.0); WHITE BLOOD COUNT (AUTO) 6.1 K/uL (4.8-10.8)
[2019-01-20 20:26] LABS: INR 0.9 (0.8-1.2); PROTHROMBIN TIME 9.3 SECS (9.5-12.5)
[2019-01-20 20:27] LABS: BASOPHILS % (AUTO) 0.7 % (0.0-2.0); HEMATOCRIT 40.9 % (36-48); LYMPHOCYTES # (AUTO) 1.7 K/uL (1.0-5.5); LYMPHOCYTES % (AUTO) 27.2 % (20.5-51.5); MEAN CORPUSCULAR HEMOGLOBIN 25 pg (27-31); MEAN CORPUSCULAR HGB CONC 32 % (32-36); MEAN CORPUSCULAR VOLUME 77 fL (79.0-98.0); MONOCYTES % (AUTO) 5.5 % (1.7-9.3); PLATELET COUNT (AUTO) 222 K/uL (130-430); RED BLOOD CELL COUNT(AUTO) 5.32 MIL/uL (4.2-6.2)
[2019-01-20 20:33] LABS: ALANINE AMINOTRANSFERASE 62 U/L (12-78); ALBUMIN 3.2 g/dL (3.4-4.8); ANION GAP 5 (5-15); ASPARTATE AMINOTRANSFERASE 33 U/L (10-37); CALCIUM 9.3 mg/dL (8.4-11.0); CHLORIDE 98 mmol/L (98-107); CREATININE 0.96 mg/dL (0.55-1.30); GLUCOSE 190 mg/dL (70-99); POTASSIUM 3.5 mmol/L (3.5-5.1); SODIUM SERUM 133 mmol/L (136-145); TOTAL BILIRUBIN 0.3 mg/dL (0.0-1.0); UREA NITROGEN, BLOOD 17 mg/dL (8-21)
[2019-01-20 20:37] LABS: GFR AFRICAN AMERICAN 85 mL/min (>90)
[2019-01-20] MEDS ORDERED: ONDANSETRON HCL 4 MG/2 ML VIAL IVP ONE ×2 (21:15→22:45)
[2019-01-21] VITALS (8 sets, daily range): BP systolic 121–163
[2019-01-21] MEDS ORDERED: ALBUTEROL SULFATE 0.083% 2.5 MG/3 ML VIAL.NEB INH PRN
[2019-01-21] MEDS ORDERED: HYDROcodone/ACETAMIN 5-325 MG TAB (NORCO/ VICODIN) PO PRN
[2019-01-21] MEDS ORDERED: hydrALAZINE HCL 25 MG TABLET PO PRN (00:15)
[2019-01-21] MEDS ORDERED: INSULIN ASPART 100 UNITS/ML, 10 ML VIAL (NovoLOG) SUBCUT PRN (00:15)
[2019-01-21] MEDS ORDERED: LIRA0.6P SQ (00:17)
[2019-01-21] MEDS ORDERED: SIMV20TA2 PO (00:17)
[2019-01-21] MEDS ORDERED: amLODIPine BESYLATE 10 MG TABLET PO SCH (00:30)
[2019-01-21] MEDS: ONDANSETRON HCL 4 MG/2 ML VIAL IVP PRN ×2 (00:31→08:38)
[2019-01-21] MEDS: HYDROcodone/ACETAMIN 10-325 MG TAB PO PRN ×5 (00:51→21:04)
[2019-01-21] MEDS: INSULIN LISPRO SLIDING SCALE 100 UNITS/ML VIAL (humaLOG) SUBCUT PRN ×4 (06:47→21:08)
[2019-01-21] MEDS: METOPROLOL TARTRATE 50 MG TABLET PO SCH (08:40)
[2019-01-21 10:12] LABS: BILIRUBIN,URINE NEGATIVE (NEGATIVE); BLOOD, URINE NEGATIVE (NEGATIVE); CLARITY/URINE CLEAR (CLEAR); COLOR,URINE YELLOW (YELLOW); GLUCOSE,URINE 3+ (NEGATIVE); KETONES,URINE 2+ (NEGATIVE); LEUKOCYTE ESTERASE ,URINE NEGATIVE (NEGATIVE); NITRITE, URINE NEGATIVE (NEGATIVE); PH,URINE 5.5 (5.0-8.0); PROTEIN URINE 2+ (NEGATIVE); UROBILINOGEN,URINE 0.2 (0.2-1.0)
[2019-01-21] MEDS ORDERED: HYDROmorphone 1 MG INJ. 1 MG/ML AMPUL IVP ONE (10:15)
[2019-01-21] MEDS ORDERED: SUMAtriptan SUCCINATE 6 MG/0.5 ML VIAL SUBCUT ONE (10:15)
[2019-01-21 10:16] LABS: BACTERIA,URINE RARE /HPF (None Seen); RBC,URINE 0-3 /HPF (0-3); WBC,URINE 0-3 /HPF (0-3)
[2019-01-21 15:20] LABS: BARBITURATE, URINE NEGATIVE (NEG <=200); BENZODIAZEPINE, URINE NEGATIVE (NEG <=150); CANNABINOID, URINE NEGATIVE (NEG <=50); COCAINE, URINE NEGATIVE (NEG <=150); METHAMPHETAMINES SCREEN,URINE NEGATIVE (NEG <=500); OPIATE, URINE POSITIVE (NEG <=100); PHENCYCLIDINE SCREEN,URINE NEGATIVE (NEG <=25); UR TRICYCLIC ANTIDEPRESSANTS NEGATIVE (NEG <=300); URINE AMPHETAMINE NEGATIVE (NEG <=500); URINE METHADONE NEGATIVE (NEG <=200); URINE OXYCODONE SCREEN NEGATIVE (NEG <=100); URINE PROPOXYPHENE SCREEN NEGATIVE (NEG <=300)
[2019-01-22 00:32] VITALS: BP_SYST 160
[2019-01-22] MEDS: HYDROcodone/ACETAMIN 10-325 MG TAB PO PRN ×2 (01:16→08:35)
[2019-01-22] MEDS: INSULIN LISPRO SLIDING SCALE 100 UNITS/ML VIAL (humaLOG) SUBCUT PRN ×2 (06:18→11:14)
[2019-01-22 08:31] VITALS: BP_SYST 153
[2019-01-22] MEDS: METOPROLOL TARTRATE 50 MG TABLET PO SCH (08:34)
[2019-01-22] MEDS ORDERED: LISINOPRIL 10 MG TABLET (PRINIVIL) PO SCH (09:00)
[2019-01-22] MEDS ORDERED: amLODIPine BESYLATE 10 MG TABLET PO SCH (09:00)
[2019-01-22] MEDS ORDERED: GLIM1TAB PO (09:08)
[2019-01-22] MEDS ORDERED: IMI50 PO (09:09)
[2019-01-22] MEDS ORDERED: IBUP-1969 PO (09:09)
[2019-01-22] MEDS ORDERED: LISI1TAB9 PO (09:11)
[2019-01-22] MEDS ORDERED: SUMAtriptan SUCCINATE 6 MG/0.5 ML VIAL SUBCUT ONE (09:15)
[2019-01-22] MEDS ORDERED: VALPROATE SODIUM 1,000 MG in NS 100 ML IV ONE (09:30)
[2019-01-22 13:09] VITALS: BP_SYST 140
[2019-01-22] MEDS ORDERED: MORPHINE 2 MG/ML INJ. SYRINGE IVP ONE (14:30)
[2019-01-22 14:46] VITALS: BP_SYST 141
[2019-01-22 16:24] VITALS: BP_SYST 101
[2019-01-22 17:05] VITALS: BP_SYST 107
== END 2019-01-22 18:10 | disposition home or self-care (01) | DRG 199 ==
LOC: SED 18:52 → STU 23:21 → SMU 01-21 10:24
PROVIDERS: ADMIT Internal Medicine; ATTEND Internal Medicine
DX: I16.1 Hypertensive emergency (principal); E44.1 Mild protein-calorie malnutrition; E87.1 Hypo-osmolality and hyponatremia; E11.9 Type 2 diabetes mellitus without complications; I10 Essential (primary) hypertension; G43.909 Migraine, unspecified, not intractable, without status migrainosus; G47.30 Sleep apnea, unspecified; E66.9 Obesity, unspecified; J45.909 Unspecified asthma, uncomplicated; Z83.3 Family history of diabetes mellitus; Z98.891 History of uterine scar from previous surgery; Z79.899 Other long term (current) drug therapy; Z68.38 Body mass index [BMI] 38.0-38.9, adult
CPT/HCPCS: 36415; 70450-TC; 80053; 80307; 81000-TC; 82962; 84484; 85025; 85610-TC; 85651-TC; 93005; 96374; 96375; 96376; 99285; G0378; J0360; J1170; J2270; J2405; J3030

== ENCOUNTER 2019-09-08 23:42 | Emergency (ER) | payer MEDICAID ==
[~2019-09-08] VITALS: Ht 152.4 cm; Wt 90.7 kg
[~2019-09-08 23:42] MED LIST changes: -CIPR-211 PO; +GLIM1TAB PO; +IBUP-1969 PO; +IMI50 PO; +LIRA0.6P SQ; +LISI1TAB32 PO; -LOSA100T3 PO; +METO100T14 PO; -METR500T PO; +ONDA4TAB5 PO; +SIMV20TA2 PO; +TRAM-350 PO
[2019-09-09 00:05] VITALS: BP_SYST 132
--- NOTE | 2019-09-09 00:08 | NUR ---
Patient triaged and placed in waiting room. VS checked and patient appears in no acute distress at this time. Accompanied by self, awaiting available bed, and MD notified of need for MSE.
--- NOTE | 2019-09-09 00:55 | NUR ---
Pt ambulatory to bed 7 for evaluation
--- NOTE | 2019-09-09 00:55 | NUR ---
Pt c/o dizziness and intermittent profuse vomiting since yesterday. Pt states that her blood sugar was 369 mg/dL in early afternoon and 349 mg/dL at 2200. No active vomiting noted at this time.
--- NOTE | 2019-09-09 01:20 | NUR ---
Dr. Jenkins at bedside.
[2019-09-09] MEDS ORDERED: NACL 0.9% 1,000 ML IV ONE ×2 (01:47→03:30)
--- NOTE | 2019-09-09 02:09 | NUR ---
# 20 gauge angiocath placed to LAC. Use of asceptic technique. Opsite placed over site. Blood return noted. Blood for lab drawn from site. Flushed with 10 cc of normal saline. No evidence of infiltration noted. Patient tolerated well.
[2019-09-09 02:32] LABS: BILIRUBIN,URINE NEGATIVE (NEGATIVE); BLOOD, URINE NEGATIVE (NEGATIVE); CLARITY/URINE CLEAR (CLEAR); COLOR,URINE YELLOW (YELLOW); GLUCOSE,URINE 3+ (NEGATIVE); KETONES,URINE NEGATIVE (NEGATIVE); LEUKOCYTE ESTERASE ,URINE NEGATIVE (NEGATIVE); NITRITE, URINE NEGATIVE (NEGATIVE); PH,URINE 5.5 (5.0-8.0); PROTEIN URINE 2+ (NEGATIVE); UROBILINOGEN,URINE 0.2 (0.2-1.0)
[2019-09-09 02:38] LABS: BASOPHILS % (AUTO) 0.4 % (0.0-2.0); EOSINOPHILS % (AUTO) 0.3 % (0.0-4.0); HEMATOCRIT 43.1 % (36-48); HEMOGLOBIN 13.8 g/dL (12.0-16.0); LYMPHOCYTES # (AUTO) 1.9 K/uL (1.0-5.5); LYMPHOCYTES % (AUTO) 26.1 % (20.5-51.5); MEAN CORPUSCULAR HEMOGLOBIN 25 pg (27-31); MEAN CORPUSCULAR HGB CONC 32 % (32-36); MEAN CORPUSCULAR VOLUME 77 fL (79.0-98.0); MONOCYTES # (AUTO) 0.5 K/uL (0.0-1.0); MONOCYTES % (AUTO) 7.2 % (1.7-9.3); NEUTROPHILS # (AUTO) 4.9 K/uL (1.8-7.7); PLATELET COUNT (AUTO) 236 K/uL (130-430); RED BLOOD CELL COUNT(AUTO) 5.58 MIL/uL (4.2-6.2); RED CELL DISTRIBUTION WIDTH 14.9 % (9.0-15.0); WHITE BLOOD COUNT (AUTO) 7.4 K/uL (4.8-10.8)
[2019-09-09 02:46] LABS: CREATININE 1.3 mg/dL (0.55-1.30); POTASSIUM 3.6 mmol/L (3.5-5.1)
[2019-09-09 02:48] LABS: INR 0.9 (0.8-1.2); PROTHROMBIN TIME 9.5 SECS (9.5-12.5)
[2019-09-09 02:51] LABS: ALBUMIN 3.7 g/dL (3.4-4.8); TOTAL BILIRUBIN 0.6 mg/dL (0.0-1.0)
[2019-09-09 02:52] LABS: BACTERIA,URINE FEW /HPF (None Seen); RBC,URINE 0-3 /HPF (0-3); WBC,URINE 0-3 /HPF (0-3)
[2019-09-09] MEDS ORDERED: INSULIN REGULAR, HUMAN 10 UNITS/0.1 ML INJ IVP ONE (03:30)
[2019-09-09] MEDS ORDERED: ONDANSETRON HCL 4 MG/2 ML VIAL IVP ONE (03:30)
[2019-09-09 05:10] VITALS: BP_SYST 124
--- NOTE | 2019-09-09 05:10 | NUR ---
Patient given written and verbal discharge instructions and verbalizes understanding. ER MD discussed with patient the results and treatment provided. Patient in stable condition. ID arm band removed. IV catheter removed intact and dressing applied, no active bleeding. Rx of Zofran given. Patient educated on pain management and to follow up with PMD. Pain Scale 0/10. Opportunity for questions provided and answered. Medication side effect fact sheet provided.
== END 2019-09-09 05:10 | disposition home or self-care (01) ==
LOC: SED 23:42
DX: E11.65 Type 2 diabetes mellitus with hyperglycemia (principal); I10 Essential (primary) hypertension; Z79.84 Long term (current) use of oral hypoglycemic drugs; Z79.899 Other long term (current) drug therapy
CPT/HCPCS: 36415; 80053; 81000; 81025; 82150; 82962; 83690; 85025; 85610; 96361; 96374; 96375; 99284; J1815; J2405; J7030

== ENCOUNTER 2019-09-23 13:41 | Emergency (ER) | payer MEDICAID ==
[~2019-09-23] VITALS: Ht 162.6 cm; Wt 90.7 kg
[2019-09-23 13:49] VITALS: BP_SYST 146
[2019-09-23] MEDS ORDERED: AMOXICILLIN 500 MG CAPSULE PO ONE (14:45)
[2019-09-23] MEDS ORDERED: MECLIZINE HCL 25 MG TABLET (ANITVERT) PO ONE (14:45)
[2019-09-23 15:29] VITALS: BP_SYST 146
== END 2019-09-23 15:27 | disposition home or self-care (01) ==
LOC: SED 13:41
DX: R42 Dizziness and giddiness (principal); E11.9 Type 2 diabetes mellitus without complications; I10 Essential (primary) hypertension; Z79.899 Other long term (current) drug therapy
CPT/HCPCS: 81025; 99283; J8597